=== PATIENT | male | born 1975 | race Caucasian/White ===

== ENCOUNTER 2016-09-09 13:03 | Emergency (ER) | payer OTHER ==
--- NOTE | 2016-09-09 13:14 | UC ---
Dizzy HPI HPI Summary: 41 yo male with a PMH of grand mal seizures and complex partial seizures, and hx of noncompliance with medications who presents today with c/o nausea and dizziness for 1 week. Pt reports 09/01 he was seen by his PCP who prescribed him an antibiotic for a "bacterila infection" he think pneumonia. He reports he had a "terrible cough" prior to that in which he saw his primary. He had chills and fever at that time. He was seen again by his primary within the last week and his abx was switch and he was put on prednisone. Yesterday he had a seizure at home and his girlfriend call the ambulance and he was sent to [facility] where he underwent a brain CT and was told he was dehydrated and sent home. He does not know what his results showed. Today his friend and girlfriend made him come here to be re-evaluated because he still c/ o nausea and dizziness He reports the dizziness is only occasional and when he changes positions and reports nausea for the past week without vomiting. No fevers or chills. Denies abdominal pain. No constipation or diarrhea. Last BM this morning. Reports prior to yesterday his last seizure was a year ago. Denies weight loss or gain. No SOB, CP. - History Of Current Complaint Stated Complaint: NAUSEA,DIZZY Time Seen by Provider: 09/09/16 13:05 Hx Obtained From: Patient Onset/Duration: Gradual Onset - 2-3 weeks Timing: Intermittent Episode Lasting Severity Initially: Moderate Severity Currently: Moderate Pain Intensity: 0 Pain Scale Used: 0-10 Numeric Character: Lightheaded - with position change Aggravating Factor(s): Position Change Alleviating Factor(s): Lying Down Associated Signs And Symptoms: Positive: Nausea - constant nausea. Negative: Vomiting, Tinnitus, Chest Pain, SOB, Palpitations, Unsteady Gait, Visual Changes , Decreased Oral Intake - Risk Factors Cardiac Risk Factors: Negative CVA Risk Factor: Negative - Allergies/Home Medications Allergies/Adverse Reactions: Allergies Allergy/AdvReac Type Severity Reaction Status Date / Time No Known Allergies Allergy Verified 07/25/14 10:08 PMH/Surg Hx/FS Hx/Imm Hx Previously Healthy: No Endocrine History Of: Denies: Diabetes Cardiovascular History Of: Denies: Hypertension, Pacemaker/ICD Respiratory History Of: Denies: Asthma Neurological History Of: Comment Only: Seizures - LAST SEIZURE, 1 year ago - Surgical History Surgical History: Yes Surgery Procedure, Year, and Place: LEFT FEMUR [place], 2000, [facility] - Family History Known Family History: Positive: Hypertension - Social History Occupation: Employed Full-time Lives: With Family Alcohol Use: Rare Alcohol Amount: HOLIDAYS Substance Use Type: None Smoking Status (MU): Never Smoked Tobacco Have You Smoked in the Last Year: No - Immunization History Hx Tetanus, Diphtheria Vaccination: Yes Vaccination Up to Date: Yes Review of Systems Constitutional: Other - nausea Skin: Negative Eyes: Negative ENT: Negative Respiratory: Negative Cardiovascular: Negative Gastrointestinal: Negative Genitourinary: Negative Motor: Negative Neurovascular: Negative Musculoskeletal: Negative Neurological: Negative Psychological: Negative All Other Systems Reviewed And Are Negative: Yes Physical Exam Triage Information Reviewed: Yes Appearance: No Pain Distress, Ill-Appearing - appears chronically ill, and appears he feels mildy ill, Thin Vital Signs Reviewed: Yes Eye Exam: Normal Eyes: Positive: Conjunctiva Clear ENT: Positive: Normal ENT inspection, Pharynx normal Neck: Positive: Supple, Nontender, No Lymphadenopathy. Negative: Nuchal Rigidity, Tenderness @, Enlarged Nodes @ Respiratory: Positive: Chest non-tender, Lungs clear, Normal breath sounds, No respiratory distress, No accessory muscle use Cardiovascular: Positive: RRR, No Murmur, Pulses Normal, Brisk Capillary Refill Abdomen Description: Positive: No Organomegaly, Soft, Other: - right lower quad tenderness above right illiac crest.. Negative: CVA Tenderness (R), CVA Tenderness (L), Distended, Guarding, Peritoneal Signs Bowel Sounds: Positive: Present Musculoskeletal: Positive: Strength Intact, ROM Intact, No Edema Neurological: Positive: Alert Dizzy Course/Dx - Differential Dx/Diagnosis Differential Diagnosis/HQI/PQRI: Other - nausea, mild dehydration Provider Diagnoses: 1. Nausea suspect secondary to medication Discharge - Discharge Plan Condition: Stable Disposition: HOME Referrals: Avery Nathan MD [Medical Doctor] - (follow up in 1-2 days ) Additional Instructions: I suspect your nausea is secondary to the antibiotic (amoxicillin) and prednisone you are taking. I would suggest you stop the prednisone. I have prescribed you an steroid inhaler to take until your cough has resolved. I reviewed your labs and visit from [facility] yesterday and your labs looked good. It looks like you may have been very slightly dehydrated and therefore should increase your water intake as well as your potassium was low, you should increase your potassium in your diet. Your vital signs today are within normal limits and look good. Please call your primary today and make an appointment to see him tomorrow. You should have your Keppra and lamictal levels checkes. If you have any worsening or concerning symptoms return to the emergency room.
[2016-09-09] MEDS ORDERED: Ondansetron ODT TAB* 4 MG PO ONE (13:48)
[2016-09-09 14:58] VITALS: BP 119/82
== END 2016-09-09 15:05 | disposition home or self-care (01) ==
LOC: UCCORT 13:03
DX: R11.0 Nausea (principal); R42 Dizziness and giddiness; Z91.19 Patient's noncompliance with other medical treatment and regimen
CPT/HCPCS: 99212; A9270-GY; G0463

== ENCOUNTER 2016-11-13 18:27 | Emergency (ER) | payer OTHER ==
[2016-11-13 19:35] VITALS: BP 120/81
--- NOTE | 2016-11-13 19:54 | UC ---
Throat Pain/Nasal Matrinez HPI - HPI Summary HPI Summary: Woke with throat irritation today, developed into nasal congestion and cough. Denies fever, rash or vomiting. Concerned because son's school sent note home about strep being present in the classroom. Child has not been tx for strep recently. - History of Current Complaint Chief Complaint: UCGeneralIllness Stated Complaint: CONGESTION SORE THROAT COUGH Time Seen by Provider: 11/13/16 19:36 Hx Obtained From: Patient Onset/Duration: Gradual Onset, Lasting Hours Severity: Mild Cough: Nonproductive Associated Signs & Symptoms: Positive: Nasal Discharge. Negative: Fever, Vomiting, Rash - Allergies/Home Medications Allergies/Adverse Reactions: Allergies Allergy/AdvReac Type Severity Reaction Status Date / Time No Known Allergies Allergy Verified 11/13/16 19:30 PMH/Surg Hx/FS Hx/Imm Hx Endocrine History Of: Denies: Diabetes Cardiovascular History Of: Denies: Hypertension, Pacemaker/ICD Respiratory History Of: Denies: Asthma Neurological History Of: Comment Only: Seizures - LAST SEIZURE, 1 year ago - Surgical History Surgical History: Yes Surgery Procedure, Year, and Place: LEFT FEMUR [place], 2000, [facility] [place]. hernia repair - Family History Known Family History: Positive: Hypertension - Social History Occupation: Employed Full-time Lives: With Family Alcohol Use: Rare Alcohol Amount: HOLIDAYS Substance Use Type: None Smoking Status (MU): Never Smoked Tobacco Have You Smoked in the Last Year: No - Immunization History Most Recent Influenza Vaccination: none Hx Tetanus, Diphtheria Vaccination: Yes Vaccination Up to Date: Yes Review of Systems Constitutional: Negative Skin: Negative Eyes: Negative ENT: Sore Throat, Nasal Discharge Respiratory: Cough Cardiovascular: Negative Gastrointestinal: Negative Genitourinary: Negative Motor: Negative Neurovascular: Negative Musculoskeletal: Negative Neurological: Negative Psychological: Negative All Other Systems Reviewed And Are Negative: Yes Physical Exam Triage Information Reviewed: Yes Appearance: Well-Appearing, No Pain Distress, Well-Nourished Vital Signs: Initial Vital Signs Temp 97.9 F 11/13/16 19:26 Pulse 55 11/13/16 19:26 Resp 16 11/13/16 19:26 BP 120/81 11/13/16 19:26 Pulse Ox 100 11/13/16 19:26 Vital Signs Reviewed: Yes Eye Exam: Normal Eyes: Positive: Conjunctiva Clear ENT: Positive: Hearing grossly normal, Nasal congestion, TMs normal. Negative: Pharyngeal erythema - injected Dental Exam: Normal Neck exam: Normal Neck: Positive: Supple Respiratory Exam: Normal Respiratory: Positive: Chest non-tender, Lungs clear, Normal breath sounds, No respiratory distress, No accessory muscle use Cardiovascular Exam: Normal Cardiovascular: Positive: RRR Musculoskeletal Exam: Normal Neurological Exam: Normal Neurological: Positive: Alert Psychological Exam: Normal Skin Exam: Normal Throat Pain/Nasal Course/Dx - Differential Dx/Diagnosis Provider Diagnoses: URI, likely viral Discharge - Discharge Plan Condition: Stable Disposition: HOME Patient Education Materials: Upper Respiratory Infection (ED) Referrals: Non Staff,Doctor [Primary Care Provider] - Additional Instructions: Call or return if you develop increasing fever, shortness of breath, chest pain , bloody sputum, or otherwise worsen. If you have not improved at all after several days, contact your primary care physician or return here.
== END 2016-11-13 19:57 | disposition home or self-care (01) ==
LOC: UCCORT 18:27
DX: J06.9 Acute upper respiratory infection, unspecified (principal)
CPT/HCPCS: 99211; G0463

== ENCOUNTER 2017-10-27 13:05 | Emergency (ER) | payer SELFPAY ==
[2017-10-27 13:32] VITALS: BP 128/95
--- NOTE | 2017-10-27 13:49 | UC ---
Hand/Wrist HPI - HPI Summary HPI Summary: right wrist / forearm pain x 2 days ? injury at work due to reparative motion , pain and swelling , increase pain with wrist movement better with rest, - History Of Current Complaint Chief Complaint: UCUpperExtremity Stated Complaint: RIGHT ARM PAIN Time Seen by Provider: 10/27/17 13:26 Hx Obtained From: Patient Onset/Duration: Gradual Onset, Lasting Days - 2, Still Present Severity Initially: Moderate Severity Currently: Moderate Pain Intensity: 8 Character Of Pain: Aching Aggravating Factor(s): Movement, Lifting, Flexion, Extension, Twisting Alleviating Factor(s): Rest Associated Signs And Symptoms: Positive: Swelling, Weakness. Negative: Redness , Bruising, Fever, Numbness/Tingling - Allergies/Home Medications Allergies/Adverse Reactions: Allergies Allergy/AdvReac Type Severity Reaction Status Date / Time No Known Allergies Allergy Verified 10/27/17 13:27 Home Medications: Home Medications Acetaminophen TAB* [Tylenol TAB*] 650 mg PO Q4H PRN 10/27/17 [History Confirmed 10/27/17] PMH/Surg Hx/FS Hx/Imm Hx Neurological History: Seizures - Surgical History Surgical History: Yes Surgery Procedure, Year, and Place: LEFT FEMUR [place], 2000, [facility] [place] - Family History Known Family History: Positive: Hypertension - Social History Alcohol Use: Rare Alcohol Amount: [place] Substance Use Type: None Smoking Status (MU): Never Smoked Tobacco Have You Smoked in the Last Year: No - Immunization History Most Recent Influenza Vaccination: none Hx Tetanus, Diphtheria Vaccination: Yes Vaccination Up to Date: Yes Review of Systems Constitutional: Negative Skin: Negative Eyes: Negative ENT: Negative Respiratory: Negative Cardiovascular: Negative Is Patient Immunocompromised?: No All Other Systems Reviewed And Are Negative: Yes Physical Exam Triage Information Reviewed: Yes Appearance: Well-Appearing, No Pain Distress, Well-Nourished Vital Signs: Initial Vital Signs Temp 98 F 10/27/17 13:24 Pulse 76 10/27/17 13:24 Resp 16 10/27/17 13:24 BP 128/95 10/27/17 13:24 Pulse Ox 99 10/27/17 13:24 Vital Signs Reviewed: Yes Eyes: Positive: Conjunctiva Clear ENT: Positive: Normal ENT inspection, Hearing grossly normal, Pharynx normal Neck: Positive: Supple, Nontender, No Lymphadenopathy Respiratory: Positive: Chest non-tender, Lungs clear, Normal breath sounds Cardiovascular: Positive: RRR, No Murmur, Pulses Normal Musculoskeletal: Positive: Other: - right wrist / forearm : + swelling , no erythema, + tenderness, increase pain with wrist flexion and extension , Hand/Wrist Course/Dx - Differential Dx/Diagnosis Provider Diagnoses: tendonitis right wrist Discharge - Sign-Out/Discharge Documenting (check all that apply): Discharge/Admit/Transfer - Discharge Plan Condition: Stable Disposition: HOME Prescriptions: Naproxen [Naprosyn 500 mg tab] 500 mg PO BID #20 tablet Patient Education Materials: Tendinitis (ED) Forms: *Work Release Referrals: No Primary Care Phys,NOPCP [Primary Care Provider] - 7 Days - Billing Disposition and Condition Condition: STABLE Disposition: HOME
== END 2017-10-27 14:03 | disposition home or self-care (01) ==
LOC: UCCORT 13:05
DX: M77.9 Enthesopathy, unspecified (principal)
CPT/HCPCS: 99212; G0463